=== PATIENT | female | born 1975 | race Caucasian/White ===

== ENCOUNTER 2016-11-26 14:41 | Emergency (ER) | payer OTHER ==
--- NOTE | ~2016-11-26 | EKG ---
PATIENT: JENNIFER MCKEON UNIT #: [id number] Ventricular Rate: 55 BPM Atrial Rate: 55 BPM P-R Interval: 94 ms QRS Duration: 76 ms Q-T Interval: 438 ms QTC Calculation(Bezet): 419 ms P [place]: 42 degrees Calculated R [place]: 34 degrees Calculated T [place]: 46 degrees Diagnosis Line: Sinus bradycardia with sinus arrhythmia with short Diagnosis Line: SC Diagnosis Line: Otherwise normal ECG Diagnosis Line: No previous ECGs available Diagnosis Line: Confirmed by KAYLA HOLLEY MD ([id number]) on Diagnosis Line: 11/27/2016 11:08:37 AM INTERPRETING MDAnny KILLIAN
--- NOTE | ~2016-11-26 | CT4 ---
[facility] RADIOLOGY TEXT RESULTS PATIENT: JENNIFER MCKEON LOCATION: [facility] : 71 UNIT #: [id number] AGE: [address]: Ravin Singer DO SEX: F ORDER DR: [id number] [facility] [address] [place], [place] [address] [id number] E MR#: [id number] Acc #: [id number] NAME: JENNIFER MCKEON : 1975 SEX: F STUDY DATE/TIME: 11/26/2016 17:48 UNIT: [facility] ROOM: STUDY DESCRIPTION: CT Abd and Pelv Wo Cont Attending Physician: Ravin Singer D.O. Ordering Physician: Ravin Singer D.O. Primary Care Physician: [facility] MEDICAL IMAGING REPORT This report is preliminary unless electronic signature is present EXAM CT abdomen and pelvis without contrast. HISTORY Left flank pain since yesterday. TECHNIQUE This CT exam was performed with one or more of the following radiation dose reduction techniques: automatic exposure control, adjustment of mA and/or kV according to patient size, and iterative reconstruction. FINDINGS CT abdomen and pelvis was performed without contrast. CT ABDOMEN. The liver, gallbladder, spleen, pancreas, kidneys, and adrenal glands are normal. No renal calculi. No hydronephrosis or bowel dilatation. No adenopathy. CT PELVIS. No free fluid or inflammatory stranding in the pelvis. The uterus is unremarkable. Incidental ovarian cysts. No bowel dilatation. The urinary bladder is normal. IMPRESSION Negative CT abdomen and pelvis. No urinary calculi or obstruction. No bowel dilatation. Dictated by... Georges Stone M.D. [facility] RADIOLOGY TEXT RESULTS PATIENT: JENNIFER MCKEON LOCATION: [facility] : 71 UNIT #: [id number] AGE: [address]: Ravin Singer DO SEX: F ORDER DR: THIS IS AN ELECTRONICALLY VERIFIED REPORT Georges Stone M.D. at 11/26/2016 10:53 PM CATIE/dannie TD: 11/26/2016 22:27 JOB #: [id number] MEDICAL IMAGING REPORT Page 1 of 1 COPY
--- NOTE | ~2016-11-26 | CR72 ---
[facility] A Service of [facility] RADIOLOGY TEXT RESULTS PATIENT: JENNIFER MCKEON LOCATION: [facility] : 71 UNIT #: [id number] AGE: [address]: Ravin Singer DO SEX: F ORDER DR: [id number] [facility] [address] [place], [place] [address] [id number] E MR#: [id number] Acc #: [id number] NAME: JENNIFER MCKEON : 1975 SEX: F STUDY DATE/TIME: 11/26/2016 18:18 UNIT: [facility] ROOM: STUDY DESCRIPTION: CR Chest Single View Portable Attending Physician: Ravin Singer D.O. Ordering Physician: Ravin Singer D.O. Primary Care Physician: [facility] MEDICAL IMAGING REPORT This report is preliminary unless electronic signature is present EXAM Single view chest, dated 11/26/16. COMPARISON Frontal view of the chest with left-sided rib views dated 10/21/11. HISTORY Shortness of air with activity, left flank pain on 11/25/16. FINDINGS Single view of the chest was obtained. A single AP view of the chest shows both lungs to be clear. The heart is normal in size. The mediastinal contour is normal. No significant bone abnormalities are seen. IMPRESSION Normal AP chest. Dictated by... Veronica Mueller M.D. THIS IS AN ELECTRONICALLY VERIFIED REPORT Veronica Mueller M.D. at 11/28/2016 8:33 PM CPR/jt TD: 11/26/2016 23:00 JOB #: [id number] MEDICAL IMAGING REPORT Page 1 of 1 COPY
[2016-11-26 15:39] LABS: URINE SOURCE CLEAN CATCH
[2016-11-26 15:57] LABS: URINE APPEARANCE TURBID; URINE BILIRUBIN NEG (NEG); URINE BLOOD NEG (NEG); URINE COLOR YELLOW; URINE GLUCOSE NEG (NEG); URINE KETONE TRACE (NEG); URINE LEUKOCYTE ESTERASE 1+ (NEG); URINE NITRATE NEG (NEG); URINE PROTEIN TRACE (NEG); URINE SPECIFIC GRAVITY 1.032 (1.003-1.035)
[2016-11-26 16:00] LABS: CULTURE INDICATED? YES; URINE BACTERIA AUWI 4+ (NEGATIVE); URINE SQUAMOUS EPITHELIAL CELL MANY /[HPF]; UWBCS1 AUWI 25-50 (0-5)
[2016-11-26 16:28] LABS: BASOPHIL# 0.1 X10e3 (0-0.3); BASOPHIL% 0.5 % (0-2.5); EOSINOPHIL# 0.1 X10e3 (0-0.7); EOSINOPHIL% 0.7 % (0.0-7.0); HEMATOCRIT 40.1 % (35.0-45.0); HEMOGLOBIN 12.7 gm/dL (12.0-16.0); LYMPHOCYTE# 3.1 X10e3 (1.0-3.5); LYMPHOCYTE% 26.1 % (17.0-45.0); MEAN CELL VOLUME 79.5 FL (83-96); MEAN CORPUSCULAR HEMOGLOBIN 25.2 PG (28-34); MEAN CORPUSCULAR HGB CONC 31.6 g/dL (30-36); MEAN PLATELET VOLUME 8.5 FL (6.5-11.5); MONOCYTE# 0.9 X10e3 (0-1.0); MONOCYTE% 7.6 % (3.0-12.0); NEUTROPHIL# 7.7 X10e3 (1.5-7.1); NEUTROPHIL% 65.1 % (40-75); PLATELET COUNT 365 X10e3 (140-420); RED BLOOD COUNT 5.04 X10e (3.90-5.30); RED CELL DISTRIBUTION WIDTH 15.6 % (11.0-15.5); WHITE BLOOD COUNT 11.9 X10e3 (4.0-10.5)
[2016-11-26 16:29] LABS: DIFF IND NO
[2016-11-26 16:53] LABS: ALBUMIN SERUM 4.8 g/dL (3.5-5.0); BILIRUBIN,TOTAL 0.5 mg/dL (0.2-2.0); CALCIUM SERUM 9.2 mg/dL (8.4-10.2); CREATININE SERUM 0.5 mg/dL (0.6-1.4); GLOM FILT RATE Estimated 118.6 mL/min (>60); POTASSIUM 3.6 mmol/L (3.5-5.1); PROTEIN TOTAL SERUM 8.5 g/dL (6.0-8.3)
[2016-11-26 17:56] LABS: POC - CKMB <1.0 ng/mL (0.0-7.9); POC - TROPONIN <0.05 ng/mL (<=0.05)
[2016-11-26 18:00] LABS: POC - CKMB <1.0 ng/mL (0.0-7.9); POC - TROPONIN <0.05 ng/mL (<=0.05)
== END 2016-11-26 21:15 | disposition home or self-care (01) ==
LOC: CED 14:41
PROVIDERS: Emergency Medicine
DX: K59.00 Constipation, unspecified (principal); N39.0 Urinary tract infection, site not specified; F17.200 Nicotine dependence, unspecified, uncomplicated; F11.23 Opioid dependence with withdrawal; Z90.89 Acquired absence of other organs; Z88.0 Allergy status to penicillin; Z88.8 Allergy status to other drugs, medicaments and biological substances; Z98.51 Tubal ligation status
CPT/HCPCS: 36415; 71010; 74176; 80053; 81003; 82553; 83690; 84484; 84703; 85025; 87086; 93005; 96361; 96365; 96375; 99284; J0696; J1885; J2405